=== PATIENT | male | born 1980 | race Two or more races ===

== ENCOUNTER → 2017-11-23 | Outpatient (CLI) | payer OTHER ==
[~2017-11-23] MED LIST: CONRAY-43 43% 50ML VIAL (Q9960) As Ordered; PROHANCE 279.3MG/ML 5ML VIAL (A9576) As Ordered
== END ==
LOC: M RADPRO 06:46
DX: M25.551 Pain in right hip (principal)
CPT/HCPCS: 27093

== ENCOUNTER → 2018-04-09 | Outpatient (REF) | payer OTHER ==
[2018-04-09 14:45] LABS: CHLAMYDIA DNA AMPLIFICATION POSITIVE (NEGATIVE); GC DNA AMPLIFICATION NEGATIVE (NEGATIVE)
== END ==
LOC: M LAB REF 12:18
DX: R30.0 Dysuria (principal)

== ENCOUNTER 2018-09-19 17:11 | Emergency (ER) | payer OTHER ==
[~2018-09-19] VITALS: Ht 175.3 cm; Wt 107.9 kg
[2018-09-19] MEDS ORDERED: diphenhydrAMINE INJ 50MG/ML VIAL (J1200) IV STA (17:22)
[2018-09-19] MEDS ORDERED: FAMOTIDINE/NS 20 MG/50 ML BAG (S0028) As Ordered ONE (17:24)
[2018-09-19] MEDS ORDERED: diphenhydrAMINE INJ 50MG/ML VIAL (J1200) As Ordered ONE (17:24)
[2018-09-19] MEDS ORDERED: methylPREDNISolone INJ 125 MG/2 ML VIAL (J2930) As Ordered ONE (17:24)
[2018-09-19] MEDS ORDERED: methylPREDNISolone INJ 125 MG/2 ML VIAL (J2930) IV ONE (17:30)
[2018-09-19] MEDS ORDERED: FAMOTIDINE INJ 20MG/2ML VIAL (S0028) IVP ONE (17:30)
[2018-09-19] MEDS ORDERED: PRED20TA PO (18:41)
[2018-09-19] MEDS ORDERED: BENA25CA4 PO (18:43)
[2018-09-19] MEDS ORDERED: PEPC1TAB5 PO (18:44)
[2018-09-19 18:45] VITALS: BP 126/79
== END 2018-09-19 18:52 | disposition home or self-care (01) ==
LOC: M ED 17:11
DX: L50.0 Allergic urticaria (principal); Z88.5 Allergy status to narcotic agent; Z88.8 Allergy status to other drugs, medicaments and biological substances
CPT/HCPCS: 96374; 96375; 99284; J1200; J2930